=== PATIENT | female | born 1960 | race Caucasian/White ===

== ENCOUNTER → 2017-03-17 | Outpatient (CLI) | payer MEDICAID ==
[~2017-03-17] MED LIST: IOPAMIDOL (ISOVUE-300) 100 ML BTL IV ONE
== END ==
LOC: FIMAGING 07:59
PROVIDERS: ATTEND Physician Assistant
DX: K83.1 Obstruction of bile duct (principal); N32.9 Bladder disorder, unspecified; K44.9 Diaphragmatic hernia without obstruction or gangrene; N18.9 Chronic kidney disease, unspecified
CPT/HCPCS: Q9967

== ENCOUNTER → 2017-04-15 | Outpatient (CLI) | payer MEDICAID | LOC: FIMAGING 15:45 | PROVIDERS: ATTEND Physician Assistant | DX: K86.2 Cyst of pancreas (principal); K44.9 Diaphragmatic hernia without obstruction or gangrene; K85.92 Acute pancreatitis with infected necrosis, unspecified ==

== ENCOUNTER → 2018-04-19 | Outpatient (CLI) | payer MEDICAID | LOC: FIMAGING 13:11 | PROVIDERS: ATTEND Physician Assistant | DX: R93.2 Abnormal findings on diagnostic imaging of liver and biliary tract (principal); K44.9 Diaphragmatic hernia without obstruction or gangrene ==